=== PATIENT | male | born 1995 | race Caucasian/White ===

== ENCOUNTER → 2017-03-19 | Outpatient (CLI) | payer BC ==
[~2017-03-19] MED LIST: DULERA1 AR1 IH; LEVAQUIN 750MG750 M1 PO; NIGHT-TIME COL300 ML; PREDNISONE20 MG PO; PROAIR HFA0.09 MG/AC IH; RT ADVAIR 228 DISKUS IH; RT SPIRIVA18 MCG IH; VENTOLIN0.09 MG IH
== END ==
LOC: ZCOL.LAB 16:22
DX: J30.9 Allergic rhinitis, unspecified (principal)

== ENCOUNTER → 2017-04-21 | Outpatient (CLI) | payer BC | LOC: ZCOL.LAB 16:23 | DX: J01.90 Acute sinusitis, unspecified (principal) ==

== ENCOUNTER 2017-05-03 12:42 | Inpatient (IN) | payer BC ==
[~2017-05-03] VITALS: Ht 182.9 cm; Wt 76.8 kg
[2017-05-03] VITALS (226 sets, daily range): BP systolic 132–137; BP diastolic 39–73; PULSE 133–144; TEMP 97.8; O2SAT 88–99
[2017-05-03] MEDS ORDERED: SINGULAIR 110 MG/TAB PO (13:04)
[2017-05-03] MEDS ORDERED: DULERA1 ARO IH (13:04)
[2017-05-03 13:25] LABS: BASO # 0.1 (0.0-0.2); BASO % 0.2 % (0.0-2.0); EOS # 4.3 (0.0-0.7); EOS % 20.7 % (0-4.0); GRAN # 12.7 (1.4-6.5); GRAN % 60.6 % (42.2-75.2); HEMOGLOBIN 17.6 g/dl (13.5-18.0); LYMPH # 2.8 (1.2-3.4); LYMPH % 13.2 % (20.0-51.0); MEAN CELL VOLUME 90 fl (80.0-100.0); MEAN CORPUSCULAR HEMOGLOBIN 30 pg (27.0-31.0); MEAN CORPUSCULAR HGB CONC 34 g/dl (33.0-37.0); MEAN PLATELET VOLUME 9.3 fl (7.4-10.4); MONO # 1.1 (0.1-0.6); PLATELET COUNT 278 K/mm3 (130-400); RED BLOOD COUNT 5.82 M/mm3 (4.20-5.60)
[2017-05-03 13:29] LABS: HEMATOCRIT 52.5 % (42.0-52.0); WHITE BLOOD COUNT 20.9 K/mm3 (4.8-10.8)
[2017-05-03 13:31] LABS: CALCIUM 9.9 mg/dL (8.4-10.2); CREATININE, serum 1.13 mg/dL (0.66-1.25); POTASSIUM 4.2 mmol/L (3.4-5.0)
[2017-05-03 17:08] LABS: ARTERIAL BLD GAS O2 SATURATION 96.7 % (92-100); ARTERIAL BLD GAS TCO2 CT 21.5; ARTERIAL BLOOD GAS BASE EXCESS -2.9 (-2-2); ARTERIAL BLOOD GAS HCO3 20.5 meq/L (22-26); ARTERIAL BLOOD GAS PHT 7.42 C (7.35-7.45); ARTERIAL BLOOD GAS PO2 85.2 mmHg (80-100); ARTERIAL BLOOD GAS PO2T 85.2 (80-100); ARTERIAL BLOOD GAS pH 7.42 (7.35-7.45); OXYHEMOGLOBIN 95.7 %
[2017-05-03 17:09] LABS: ATS? YES
[2017-05-03 17:10] LABS: ALLEN TEST YES; ALLENS TEST RESULT PASS
[2017-05-04] VITALS (783 sets, daily range): BP systolic 115–138; BP diastolic 66–84; PULSE 127–150; TEMP 97.2–98.3; O2SAT 87–100
[2017-05-04 00:13] LABS: MUCOUS Present /lpf; PH 5 (5-8); SQUAMOUS EPITHELIAL None Seen /hpf; URINE APPEARANCE Clear; URINE BACTERIA None Seen /hpf; URINE BILIRUBIN Negative (NEGATIVE); URINE BLOOD Negative (NEGATIVE); URINE COLOR Straw; URINE GLUCOSE 1+ (NEGATIVE); URINE KETONE 1+ (NEGATIVE); URINE LEUKOCYTE ESTERASE Negative (NEGATIVE); URINE PROTEIN(semi-quant) Negative (NEGATIVE); URINE RBC 0-2 /hpf; URINE UROBILINOGEN Negative (NEGATIVE); URINE WBC 0-2 /hpf
[2017-05-04 00:19] LABS: COLLECTION METHOD CLEAN CATCH; INFLUENZA A NEGATIVE; INFLUENZA B NEGATIVE
[2017-05-04 05:37] LABS: HEMATOCRIT 43.1 % (42.0-52.0); MEAN CELL VOLUME 89 fl (80.0-100.0); MEAN CORPUSCULAR HGB CONC 34 g/dl (33.0-37.0); MEAN PLATELET VOLUME 9.4 fl (7.4-10.4); PLATELET COUNT 234 K/mm3 (130-400); RED BLOOD COUNT 4.82 M/mm3 (4.20-5.60)
[2017-05-04 05:48] LABS: ADD PATHOLOGY DIFF REVIEW NO; HEMOGLOBIN 14.7 g/dl (13.5-18.0); MEAN CORPUSCULAR HEMOGLOBIN 30 pg (27.0-31.0)
[2017-05-04 05:51] LABS: CALCIUM 9.5 mg/dL (8.4-10.2); CREATININE, serum 0.91 mg/dL (0.66-1.25); POTASSIUM 4.2 mmol/L (3.4-5.0)
[2017-05-04 06:03] LABS: BAND 14 % (0-10); EOSINOPHIL 1 % (0-4); LYMPHOCYTE 7 % (20.0-51.0); NEUTROPHILS 77 % (42.0-75.2); TOTAL CELLS COUNTED 100
[2017-05-04 06:04] LABS: PLATELET ESTIMATE NORMAL (NORMAL)
[2017-05-05] VITALS (7 sets, daily range): BP systolic 107–137; BP diastolic 51–75; PULSE 89–129; TEMP 97.5–98.8
[2017-05-05 08:16] LABS: CALCIUM 9.3 mg/dL (8.4-10.2); CREATININE, serum 0.9 mg/dL (0.66-1.25); POTASSIUM 4.2 mmol/L (3.4-5.0)
[2017-05-05 08:31] LABS: HEMATOCRIT 41.8 % (42.0-52.0); MEAN CELL VOLUME 91 fl (80.0-100.0); MEAN CORPUSCULAR HEMOGLOBIN 30 pg (27.0-31.0); MEAN CORPUSCULAR HGB CONC 34 g/dl (33.0-37.0); MEAN PLATELET VOLUME 10.1 fl (7.4-10.4); PLATELET COUNT 249 K/mm3 (130-400); RED BLOOD COUNT 4.62 M/mm3 (4.20-5.60)
[2017-05-05 08:35] LABS: ADD PATHOLOGY DIFF REVIEW NO
[2017-05-05 09:01] LABS: BAND 9 % (0-10); LYMPHOCYTE 3 % (20.0-51.0); NEUTROPHILS 87 % (42.0-75.2); PLATELET ESTIMATE NORMAL (NORMAL); TOTAL CELLS COUNTED 100
[2017-05-05 11:50] LABS: ARTERIAL BLD GAS O2 SATURATION 97.8 % (92-100); ARTERIAL BLD GAS TCO2 CT 21.2; ARTERIAL BLOOD GAS HCO3 20.3 meq/L (22-26); ARTERIAL BLOOD GAS PHT 7.43 C (7.35-7.45); ARTERIAL BLOOD GAS PO2 107.3 mmHg (80-100); ARTERIAL BLOOD GAS PO2T 107.3 (80-100); ARTERIAL BLOOD GAS pH 7.43 (7.35-7.45); OXYHEMOGLOBIN 96.9 %
[2017-05-05 11:51] LABS: ATS? YES
[2017-05-06 03:57] VITALS: BP 132/83; PULSE 99; TEMP 98.3
[2017-05-06 08:11] VITALS: BP 133/72; PULSE 106; TEMP 97.6
[2017-05-06 08:24] LABS: HEMATOCRIT 42.5 % (42.0-52.0); HEMOGLOBIN 14.1 g/dl (13.5-18.0); MEAN CELL VOLUME 91 fl (80.0-100.0); MEAN CORPUSCULAR HEMOGLOBIN 30 pg (27.0-31.0); MEAN CORPUSCULAR HGB CONC 33 g/dl (33.0-37.0); MEAN PLATELET VOLUME 9.3 fl (7.4-10.4); PLATELET COUNT 264 K/mm3 (130-400); RED BLOOD COUNT 4.67 M/mm3 (4.20-5.60); WHITE BLOOD COUNT 17.3 K/mm3 (4.8-10.8)
[2017-05-06 08:30] LABS: ADD PATHOLOGY DIFF REVIEW NO
[2017-05-06 08:48] LABS: CALCIUM 9.3 mg/dL (8.4-10.2); CREATININE, serum 0.98 mg/dL (0.66-1.25); POTASSIUM 3.5 mmol/L (3.4-5.0)
[2017-05-06] MEDS ORDERED: PREDNISONE20 MG PO (09:43)
[2017-05-06] MEDS ORDERED: AMOXICILLIN 8751 TAB PO (09:44)
[2017-05-06] MEDS ORDERED: DOXYCYCLINE 10100 MG PO (09:44)
[2017-05-06 10:04] LABS: BAND 3 % (0-10); LYMPHOCYTE 19 % (20.0-51.0); METAMYELOCYTE 1 % (0-0); NEUTROPHILS 69 % (42.0-75.2); PLATELET ESTIMATE NORMAL (NORMAL); TOTAL CELLS COUNTED 100
== END 2017-05-06 11:00 | disposition home or self-care (01) | DRG 871 ==
LOC: COL.ER 12:42 → ICU 16:22 → MEDICAL 05-04 18:15
PROVIDERS: Internal Medicine Critical Care Medicine; Physician Assistant
DX: A41.9 Sepsis, unspecified organism (principal); J96.01 Acute respiratory failure with hypoxia; J18.9 Pneumonia, unspecified organism; J45.41 Moderate persistent asthma with (acute) exacerbation
CPT/HCPCS: 99223-AI; 99232-AI; 99233-AI; 99239; J1650; J1956; J2543; J2930; J3370; J7030; J7050; J7512; Q9967

== ENCOUNTER → 2017-07-07 | Outpatient (CLI) | payer BC ==
[~2017-07-07] MED LIST changes: +AMOXICILLIN 8751 TAB PO; +DOXYCYCLINE 10100 MG PO; +DULERA1 ARO IH; +SINGULAIR 110 MG/TAB PO
== END ==
LOC: ZLAB.ENT 15:17
DX: J06.9 Acute upper respiratory infection, unspecified (principal)

== ENCOUNTER 2017-07-18 20:54 | Inpatient (IN) | payer BC ==
[~2017-07-18] VITALS: Ht 182.9 cm; Wt 72.4 kg
[2017-07-18 21:24] LABS: ARTERIAL BLD GAS O2 SATURATION 89.9 % (92-100); ARTERIAL BLD GAS TCO2 CT 21.7; ARTERIAL BLOOD GAS BASE EXCESS -1.3 (-2-2); ARTERIAL BLOOD GAS HCO3 20.8 meq/L (22-26); ARTERIAL BLOOD GAS PCO2 28.7 mmHg (35-45); ARTERIAL BLOOD GAS PO2 52.6 mmHg (80-100); ARTERIAL BLOOD GAS pH 7.48 (7.35-7.45)
[2017-07-18 21:29] LABS: HEMATOCRIT 46.1 % (42.0-52.0); HEMOGLOBIN 16.1 g/dl (13.5-18.0); MEAN CELL VOLUME 87 fl (80.0-100.0); MEAN CORPUSCULAR HEMOGLOBIN 30 pg (27.0-31.0); MEAN CORPUSCULAR HGB CONC 35 g/dl (33.0-37.0); MEAN PLATELET VOLUME 9.2 fl (7.4-10.4); PLATELET COUNT 278 K/mm3 (130-400); RED BLOOD COUNT 5.29 M/mm3 (4.20-5.60); REDCELL DISTRIBUTION WIDTH-CV 12.4 % (11.5-14.5)
[2017-07-18 21:39] LABS: BAND 6 % (0-10); EOSINOPHIL 57 % (0-4); LYMPHOCYTE 13 % (20.0-51.0); NEUTROPHILS 19 % (42.0-75.2); PLATELET ESTIMATE NORMAL (NORMAL)
[2017-07-18 21:47] LABS: ALBUMIN 4.2 gm/dL (3.5-5.0); BILIRUBIN,TOTAL 0.5 mg/dL (0.0-1.0); C-REACTIVE PROTEIN 6.9 mg/dL (0.0-0.9); CALCIUM 9.3 mg/dL (8.4-10.2); CREATININE, serum 0.92 mg/dL (0.66-1.25); TOTAL PROTEIN 8.5 gm/dL (6.4-8.2)
[2017-07-18 21:48] LABS: INFLUENZA A NEGATIVE; INFLUENZA B NEGATIVE
[2017-07-19] VITALS (976 sets, daily range): BP systolic 124–150; BP diastolic 70–100; PULSE 76–139; TEMP 97.1–98.1; O2SAT 89–100
[2017-07-19] MEDS ORDERED: CLEOCIN HCL300 MG PO (00:21)
[2017-07-19 06:10] LABS: BASO # 0.1 (0.0-0.2); BASO % 0.6 % (0.0-2.0); EOS # 0.8 (0.0-0.7); EOS % 8.8 % (0-4.0); GRAN # 7.1 (1.4-6.5); GRAN % 78.8 % (42.2-75.2); HEMATOCRIT 42.7 % (42.0-52.0); LYMPH # 0.8 (1.2-3.4); MEAN CELL VOLUME 90 fl (80.0-100.0); MEAN CORPUSCULAR HEMOGLOBIN 31 pg (27.0-31.0); MEAN CORPUSCULAR HGB CONC 35 g/dl (33.0-37.0); MEAN PLATELET VOLUME 9.6 fl (7.4-10.4); MONO # 0.2 (0.1-0.6); MONO % 2.2 % (1.7-9.3); PLATELET COUNT 263 K/mm3 (130-400); RED BLOOD COUNT 4.77 M/mm3 (4.20-5.60); REDCELL DISTRIBUTION WIDTH-CV 12.6 % (11.5-14.5)
[2017-07-19 06:12] LABS: CREATININE, serum 0.81 mg/dL (0.66-1.25); POTASSIUM 4.9 mmol/L (3.4-5.0)
[2017-07-20] VITALS (1431 sets, daily range): BP systolic 121–158; BP diastolic 83–109; PULSE 95–162; TEMP 97–97.8; O2SAT 81–100
[2017-07-20 05:49] LABS: BASO % 0.2 % (0.0-2.0); EOS % 0.3 % (0-4.0); GRAN # 8.7 (1.4-6.5); GRAN % 80.7 % (42.2-75.2); HEMATOCRIT 39.7 % (42.0-52.0); HEMOGLOBIN 13.3 g/dl (13.5-18.0); LYMPH # 1.2 (1.2-3.4); MEAN CELL VOLUME 89 fl (80.0-100.0); MEAN CORPUSCULAR HEMOGLOBIN 30 pg (27.0-31.0); MEAN CORPUSCULAR HGB CONC 34 g/dl (33.0-37.0); MEAN PLATELET VOLUME 9.3 fl (7.4-10.4); MONO # 0.7 (0.1-0.6); MONO % 6.8 % (1.7-9.3); PLATELET COUNT 269 K/mm3 (130-400); RED BLOOD COUNT 4.48 M/mm3 (4.20-5.60); REDCELL DISTRIBUTION WIDTH-CV 12.8 % (11.5-14.5)
[2017-07-20 06:01] LABS: CALCIUM 9.1 mg/dL (8.4-10.2); CREATININE, serum 0.8 mg/dL (0.66-1.25); POTASSIUM 4.3 mmol/L (3.4-5.0)
[2017-07-21] VITALS (540 sets, daily range): BP systolic 137–163; BP diastolic 89–110; PULSE 89–133; TEMP 97–97.5; O2SAT 90–100
[2017-07-21 08:46] LABS: BASO % 0.1 % (0.0-2.0); GRAN # 6.5 (1.4-6.5); GRAN % 79.1 % (42.2-75.2); HEMATOCRIT 40.2 % (42.0-52.0); HEMOGLOBIN 13.5 g/dl (13.5-18.0); LYMPH # 0.9 (1.2-3.4); LYMPH % 11.3 % (20.0-51.0); MEAN CELL VOLUME 88 fl (80.0-100.0); MEAN CORPUSCULAR HEMOGLOBIN 30 pg (27.0-31.0); MEAN CORPUSCULAR HGB CONC 34 g/dl (33.0-37.0); MEAN PLATELET VOLUME 9.1 fl (7.4-10.4); MONO # 0.7 (0.1-0.6); MONO % 8.4 % (1.7-9.3); PLATELET COUNT 298 K/mm3 (130-400); RED BLOOD COUNT 4.57 M/mm3 (4.20-5.60)
[2017-07-21 08:55] LABS: CALCIUM 9.3 mg/dL (8.4-10.2); CREATININE, serum 0.81 mg/dL (0.66-1.25); MAGNESIUM 2.3 mg/dL (1.6-2.3); POTASSIUM 4.2 mmol/L (3.4-5.0)
[2017-07-22 00:41] VITALS: BP 138/81; PULSE 83; TEMP 97.5
[2017-07-22 04:58] VITALS: BP 134/90; PULSE 112; TEMP 97.9
[2017-07-22 07:35] VITALS: BP 120/88; PULSE 117; TEMP 97.7
[2017-07-22 08:11] LABS: EOS % 0.2 % (0-4.0); GRAN # 4.2 (1.4-6.5); GRAN % 50.9 % (42.2-75.2); HEMATOCRIT 41.4 % (42.0-52.0); HEMOGLOBIN 13.7 g/dl (13.5-18.0); LYMPH # 2.5 (1.2-3.4); LYMPH % 30.8 % (20.0-51.0); MEAN CELL VOLUME 89 fl (80.0-100.0); MEAN CORPUSCULAR HEMOGLOBIN 30 pg (27.0-31.0); MEAN CORPUSCULAR HGB CONC 33 g/dl (33.0-37.0); MEAN PLATELET VOLUME 9.4 fl (7.4-10.4); MONO # 1.4 (0.1-0.6); MONO % 17.6 % (1.7-9.3); PLATELET COUNT 307 K/mm3 (130-400); RED BLOOD COUNT 4.63 M/mm3 (4.20-5.60); REDCELL DISTRIBUTION WIDTH-CV 12.8 % (11.5-14.5)
[2017-07-22 08:18] LABS: CALCIUM 8.9 mg/dL (8.4-10.2); CREATININE, serum 0.87 mg/dL (0.66-1.25); MAGNESIUM 2.3 mg/dL (1.6-2.3); POTASSIUM 3.7 mmol/L (3.4-5.0)
[2017-07-22] MEDS ORDERED: CEFTIN500 MG PO (09:12)
[2017-07-22] MEDS ORDERED: LEVAQUIN 750MG750 M1 PO (09:12)
[2017-07-22] MEDS ORDERED: PREDNISONE20 MG PO ×2 (09:14→09:15)
[2017-07-22] MEDS ORDERED: PREDNISONE10 MG PO (09:15)
== END 2017-07-22 11:15 | disposition home or self-care (01) | DRG 189 ==
LOC: COL.ER 20:54 → ICU 22:51 → MEDICAL 07-21 17:54
PROVIDERS: Emergency Medicine; Family Medicine; Internal Medicine; Internal Medicine Pulmonary Disease
DX: J96.01 Acute respiratory failure with hypoxia (principal); J45.51 Severe persistent asthma with (acute) exacerbation; R65.10 Systemic inflammatory response syndrome (SIRS) of non-infectious origin without acute organ dysfunction; R00.0 Tachycardia, unspecified
CPT/HCPCS: 99223-AI; 99232-AI; 99233-AI; 99239; J0692; J1650; J1956; J2930; J3475; J7030; J7512

== ENCOUNTER 2017-10-29 14:00 | Outpatient (RCR) | payer BC ==
[2017-08-06 09:24] VITALS: BP 147/98; PULSE 122; TEMP 97.5
[2017-08-20 10:24] VITALS: BP 133/77; PULSE 92; TEMP 98.5
[2017-09-17 14:29] VITALS: BP 129/87; PULSE 109; TEMP 98.5
[2017-10-01 15:06] VITALS: BP 133/76; PULSE 93; TEMP 99
[~2017-10-29] VITALS: Ht 182.9 cm; Wt 85.0 kg
[~2017-10-29 14:00] MED LIST changes: +CEFTIN500 MG PO; +CLEOCIN HCL300 MG PO; +PREDNISONE10 MG PO; +XOLAIR150 MG SQ
[2017-10-29 15:00] VITALS: BP 121/68; PULSE 90; TEMP 98.7
== END 2017-11-04 | disposition home or self-care (01) ==
LOC: EUO
DX: J45.41 Moderate persistent asthma with (acute) exacerbation (principal)
CPT/HCPCS: J2357

== ENCOUNTER 2018-02-03 14:30 | Outpatient (RCR) | payer BC ==
[2017-11-12 14:01] VITALS: BP 123/74; PULSE 63; TEMP 97.7
[2017-12-23 15:28] VITALS: BP 134/65; PULSE 67; TEMP 98.2
[2018-01-06 15:19] VITALS: BP 133/68; PULSE 74; TEMP 97.6
[2018-01-20 16:09] VITALS: BP 136/78; PULSE 65; TEMP 98.4
[~2018-02-03] VITALS: Ht 182.9 cm; Wt 89.0 kg
[2018-02-03 14:51] VITALS: BP 138/73; PULSE 78; TEMP 98.6
== END 2018-02-10 | disposition home or self-care (01) ==
LOC: EUO
DX: J45.41 Moderate persistent asthma with (acute) exacerbation (principal)

== ENCOUNTER 2018-04-28 13:00 | Outpatient (RCR) | payer BC ==
[2018-02-17 16:24] VITALS: BP 142/71; PULSE 80; TEMP 98.1
[2018-03-03 15:51] VITALS: BP 130/67; PULSE 71; TEMP 98.5
[2018-03-17 15:04] VITALS: BP 137/76; PULSE 73; TEMP 98
[2018-03-31 15:14] VITALS: BP 117/62; PULSE 84; TEMP 98.3
[2018-04-14 15:47] VITALS: BP 118/74; PULSE 80; TEMP 98.9
[~2018-04-28] VITALS: Ht 182.9 cm; Wt 90.0 kg
[2018-04-28 13:11] VITALS: BP 130/70; PULSE 70; TEMP 97.5
== END 2018-05-18 | disposition home or self-care (01) ==
LOC: EUO
DX: J45.41 Moderate persistent asthma with (acute) exacerbation (principal)

== ENCOUNTER 2018-06-30 13:00 | Outpatient (RCR) | payer BC ==
[2018-05-19 15:00] VITALS: BP 124/75; PULSE 82; TEMP 98.2
[2018-06-02 15:00] VITALS: BP 129/73; PULSE 85; TEMP 98.6
[2018-06-16 15:01] VITALS: BP 141/69; PULSE 80; TEMP 97.5
[~2018-06-30] VITALS: Ht 182.9 cm; Wt 86.9 kg
== END 2018-06-30 13:02 | disposition home or self-care (01) ==
LOC: EUO 13:00
DX: J45.41 Moderate persistent asthma with (acute) exacerbation (principal)

== ENCOUNTER 2018-09-26 15:00 | Outpatient (RCR) | payer BC ==
[2018-06-30 13:33] VITALS: BP 133/75; PULSE 70; TEMP 98
[2018-07-18 14:56] VITALS: BP 140/84; PULSE 98; TEMP 97.6
--- NOTE | 2018-07-18 16:02 | NUR ---
Pt mariama Xolair well. Pt declined observation and left unit per ambulation.
[2018-08-01 14:58] VITALS: BP 131/72; PULSE 81; TEMP 98.3
[2018-08-15 15:50] VITALS: BP 132/68; PULSE 74; TEMP 98.3
[2018-08-29 14:58] VITALS: BP 145/69; PULSE 69; TEMP 97.6
[2018-09-13 15:29] VITALS: BP 119/72; PULSE 77; TEMP 98
[~2018-09-26] VITALS: Ht 182.9 cm; Wt 88.9 kg
[2018-09-26 15:30] VITALS: BP 124/67; PULSE 64; TEMP 98.2
== END 2018-09-28 | disposition still patient (30) ==
LOC: EUO
DX: J45.41 Moderate persistent asthma with (acute) exacerbation (principal)

== ENCOUNTER 2019-01-03 15:00 | Outpatient (RCR) | payer BC ==
[2018-10-17 15:17] VITALS: BP 117/70; PULSE 81; TEMP 98.7
[2018-10-31 15:14] VITALS: BP 117/64; PULSE 74; TEMP 98.3
[2018-11-22 15:31] VITALS: BP 116/80; PULSE 79; TEMP 97.8
[2018-12-06 14:59] VITALS: BP 143/78; PULSE 72; TEMP 98.1
[2018-12-20 15:10] VITALS: BP 132/76; PULSE 78; TEMP 98.8
[~2019-01-03] VITALS: Ht 182.9 cm; Wt 84.8 kg
[2019-01-03 16:00] VITALS: BP 137/77; PULSE 80; TEMP 98.2
== END 2019-01-03 16:10 | disposition home or self-care (01) ==
LOC: EUO 15:00
DX: J45.41 Moderate persistent asthma with (acute) exacerbation (principal); Z79.899 Other long term (current) drug therapy

== ENCOUNTER 2019-05-05 14:00 | Outpatient (RCR) | payer BC ==
[2019-02-10 15:05] VITALS: BP 125/82; PULSE 74; TEMP 98.1
[2019-02-24 15:24] VITALS: BP 135/87; PULSE 69; TEMP 98.2
[2019-03-10 15:42] VITALS: BP 157/83; PULSE 51; TEMP 98.1
[2019-03-24 15:29] VITALS: BP 122/60; PULSE 67; TEMP 98.2
[2019-04-07 15:45] VITALS: BP 124/62; PULSE 68; TEMP 98.3
[2019-04-21 15:00] VITALS: BP 154/93; PULSE 74; TEMP 97.4
[~2019-05-05] VITALS: Ht 182.9 cm; Wt 87.0 kg
[~2019-05-05 14:00] MED LIST changes: +FLOVENT 110MCG7.9 GM IH
[2019-05-05 15:02] VITALS: BP 133/85; PULSE 88; TEMP 98
== END 2019-05-11 | disposition home or self-care (01) ==
LOC: EUO
DX: J45.41 Moderate persistent asthma with (acute) exacerbation (principal); Z79.899 Other long term (current) drug therapy
CPT/HCPCS: J2357

== ENCOUNTER → 2019-05-11 | Outpatient (CLI) | payer BC | LOC: ZCOL.LAB 16:30 | DX: J33.9 Nasal polyp, unspecified (principal) ==

== ENCOUNTER 2019-06-16 11:00 | Outpatient (RCR) | payer BC ==
[2019-05-19 14:02] VITALS: BP 141/83; PULSE 88; TEMP 97.4
[2019-06-02 14:53] VITALS: BP 129/62; PULSE 73; TEMP 98
[~2019-06-16] VITALS: Ht 182.9 cm; Wt 87.0 kg
[2019-06-16 11:20] VITALS: BP 130/88; PULSE 6; TEMP 97.9
[2019-06-16] MEDS ORDERED: DULERA1 AR1 IH (11:20)
== END 2019-06-16 12:14 | disposition home or self-care (01) ==
LOC: EUO 11:00
DX: J45.41 Moderate persistent asthma with (acute) exacerbation (principal); Z79.899 Other long term (current) drug therapy

== ENCOUNTER 2020-03-12 15:00 | Outpatient (RCR) | payer BC ==
[2020-01-16 15:36] VITALS: BP 129/81; PULSE 67; TEMP 98.5
[2020-01-30 10:22] VITALS: BP 125/78; PULSE 76; TEMP 98
[2020-02-13 15:25] VITALS: BP 133/87; PULSE 77; TEMP 98.6
[2020-02-27 15:27] VITALS: BP 131/70; PULSE 63; TEMP 97.9
[~2020-03-12] VITALS: Ht 182.9 cm; Wt 85.3 kg
[~2020-03-12 15:00] MED LIST changes: +FLOVENT 220MCG7.9 GM IH
[2020-03-12 15:41] VITALS: BP 136/88; PULSE 84; TEMP 98.4
== END 2020-03-21 09:13 | disposition home or self-care (01) ==
LOC: EUO 15:00
DX: J45.41 Moderate persistent asthma with (acute) exacerbation (principal); Z79.899 Other long term (current) drug therapy

== ENCOUNTER 2020-06-20 15:00 | Outpatient (RCR) | payer BC ==
[2020-03-26 15:39] VITALS: BP 124/81; PULSE 77; TEMP 98.8
[2020-04-09 15:09] VITALS: BP 121/80; PULSE 79; TEMP 98.6
[2020-04-23 15:19] VITALS: BP 138/76; PULSE 86; TEMP 98.5
[2020-05-07 15:22] VITALS: BP 136/92; PULSE 83; TEMP 98.2
[2020-05-23 15:35] VITALS: BP 146/87; PULSE 104; TEMP 98.7
[2020-06-06 15:15] VITALS: BP 129/70; PULSE 73; TEMP 98.7
[~2020-06-20] VITALS: Ht 182.9 cm; Wt 84.2 kg
[~2020-06-20 15:00] MED LIST changes: +CARDIZEM CD 24240 MG PO
[2020-06-20 15:47] VITALS: BP 126/82; PULSE 77; TEMP 98.7
== END 2020-06-20 15:49 | disposition home or self-care (01) ==
LOC: EUO 15:00
DX: Z79.899 Other long term (current) drug therapy (principal)

== ENCOUNTER 2020-07-04 15:00 | Outpatient (RCR) | payer BC ==
[~2020-07-04] VITALS: Ht 182.9 cm; Wt 84.9 kg
[2020-07-04 15:21] VITALS: BP 109/71; PULSE 96; TEMP 98.9
== END 2020-09-25 13:16 | disposition home or self-care (01) ==
LOC: EUO 15:00
DX: Z79.899 Other long term (current) drug therapy (principal)
CPT/HCPCS: J2357